=== PATIENT | female | born 1990 | race Caucasian/White ===

== ENCOUNTER 2022-02-13 09:36 | Emergency (ER) | payer MEDICAID, SELFPAY ==
--- NOTE | 2022-02-13 09:30 | RT.EKG_ITS ---
APPROVED REPORT Exam: Resting ECG Reason for Exam: chest pain Patient Location: E HR:96 bpm ECG Measurements Heart Rate 96 AXIS MI 136 P 42 QRSd 68 QRS 15 QT 340 T 36 QTc 429 Conclusion Sinus rhythm...normal P axis, V-rate 60- 99 Atrial premature complex...SV complex w/ short R-R interval Probable left atrial enlargement...P >50mS, <-0.10mV V1 sinus rhythm, normal axis, normal intervals, non ischemic
[2022-02-13 09:41] VITALS: BP 118/81; PULSE 95; RESP 18; TEMP 36.9; O2SAT 96
--- NOTE | 2022-02-13 10:00 | DI.RAD_ITS ---
Exam(s) XR PORTABLE CHEST AP EXAM: XR PORTABLE CHEST AP CLINICAL HISTORY: chest pain. TECHNIQUE: 2D digital imaging was performed. COMPARISON: No exams were available for comparison FINDINGS: Single AP portable view. Heart size is upper normal. The mediastinum is not widened. Lungs are clear. No infiltrates nor obvious pleural effusions. IMPRESSION: No acute pulmonary findings on this single AP portable view of the chest. DATA REPOSITORY: RADIATION DOSE DELIVERED: All CT scans at this facility use at least one of these dose optimization techniques: automated exposure control; mA and/or kV adjustment per patient size (includes targeted e xams where dose is matched to clinical indication); or iterative reconstruction.
[2022-02-13 10:01] VITALS: RESP 18
--- NOTE | 2022-02-13 10:05 | ED.GENADUL_ITS ---
Discharge Plan Disposition Patient Disposition: HOME Condition: Stable Discharge Details Clinical Impression: Body aches, Elevated transaminase level Primary Care Provider: Chris Marcos ED Provider: Elijah Dumont Home Meds and New Rx's Prescriptions: New doxycycline hyclate 100 mg tablet 100 mg PO BID 10 Days Qty: 20 0RF No Action dextroamphetamine-amphetamine 30 mg tablet 30 mg PO DAILY jmrjanur-pfettljfh-EB 3.5-10,000-1 mg/mL-unit/mL-% drops,suspension 4 drp otic (ear) TID Qty: 10 1RF Rx Instructions: treat both ears. stay on side 5 minutes after putting drops in upward facing ear Advair HFA 115-21 mcg/actuation HFA aerosol inhaler 2 puff inhalation BID celecoxib [Celebrex] 100 mg capsule 100 mg PO BID cyclobenzaprine 10 mg tablet 10 mg PO HS PRN dextroamphetamine-amphetamine 30 mg capsule,extended release 24hr 30 mg PO QPM diclofenac sodium [Arthritis Pain (diclofenac)] 1 % gel 2 g topical QID Rx Instructions: apply to single knee, ankle, foot; for foot includes sole/toes/top of foot escitalopram oxalate 10 mg tablet 10 mg PO DAILY meclizine 25 mg tablet 25 mg PO TID PRN meloxicam 15 mg tablet 15 mg PO DAILY PRN desog-e.estradiol/e.estradiol [Mircette (28)] 0.15-0.02 mgx21 /0.01 mg x 5 tablet 1 tab PO DAILY pantoprazole 40 mg tablet,delayed release (DR/EC) 40 mg PO DAILY olopatadine 0.7 % drops 1 drp ophthalmic (eye) DAILY albuterol sulfate [ProAir HFA] 90 mcg/actuation HFA aerosol inhaler 1 puff inhalation Q4H PRN Discharge Instructions Instructions: Fatigue (ED) Additional Instructions: We are treating you with doxycycline in case you have contracted a tickborne illness such as anaplasmosis or ehrlichiosis or Lyme disease. We are waiting on blood test that will tell us you have these infections, which should come back within the next couple of days. Please take antibiotics as prescribed. Please return to the emergency department for any worsening symptoms. Please keep your appointment with your primary care doctor on Tuesday as scheduled. Medical Decision Making 31-year-old female presents with generalized body aches fatigue intermittent chest pain joint pain and intermittent nausea over the past week progressive in nature, has been camping in [place] recently. Was evaluated at [facility] emergency department with a negative work-up per patient. Hemodynamically stable afebrile nontoxic. Does appear tired and slightly uncomfortable. EKG sinus rhythm normal axis nonischemic, no respiratory distress, no evidence of joint inflammation on examination, full range of motion of all extremities including hands knees ankles and feet, no rashes appreciated. Consider dehydration versus electrolyte abnormality versus tickborne illness versus viral syndrome versus myositis 11: 30 given constellation of symptoms and mild transaminitis we will treat empirically for tickborne illness such as anaplasmosis and or ehrlichiosis; must also consider component of dehydration given ketonuria slightly dry oral mucosa and body cramps. Mildly elevated CPK, patient does have a physical job and was outside in [place]. Home care instructions and return precautions given HPI General Date/Time Provider Initiated Documentation: 02/13/22 09:37 . HPI Narrative: 31-year-old female history of irregular heartbeat, presents with body aches mainly involving her hands and her knees as well as itching and tightness of her hands generalized fatigue and intermittent nausea over the past week, has been traveling in [place] living in a camper, was evaluated at [facility] emergency department had a work-up which included a CT angio of the chest that was negative. Endorses intermittent anterior chest discomfort. No cough or shortness of breath. Related Data Home Medications Medication Instructions Recorded Confirmed albuterol sulfate 90 mcg/actuation 1 puff inhalation Q4H PRN 06/30/21 07/08/21 aerosol inhaler (ProAir HFA) celecoxib 100 mg capsule (Celebrex) 100 mg PO BID 06/30/21 07/08/21 cyclobenzaprine 10 mg tablet 10 mg PO HS PRN 06/30/21 07/08/21 desogestrel-e.estradiol 0.15 1 tab PO DAILY 06/30/21 07/08/21 mg-0.02 mg(21)/e.estrad 0.01 mg(5) tablet (Mircette (28)) dextroamphetamine-amphetamine ER 30 mg PO QPM 06/30/21 07/08/21 30 mg 24hr capsule,extend release diclofenac sodium 1 % topical gel 2 g topical QID 06/30/21 07/08/21 (Arthritis Pain (diclofenac)) escitalopram oxalate 10 mg tablet 10 mg PO DAILY 06/30/21 07/08/21 fluticasone propionate 115 2 puff inhalation BID 06/30/21 07/08/21 mcg-salmeterol 21 mcg/actuation HFA inhaler (Advair HFA) meclizine 25 mg tablet 25 mg PO TID PRN 06/30/21 07/08/21 meloxicam 15 mg tablet 15 mg PO DAILY PRN 06/30/21 07/08/21 olopatadine 0.7 % eye drops 1 drp ophthalmic (eye) DAILY 06/30/21 07/08/21 pantoprazole 40 mg tablet,delayed 40 mg PO DAILY 06/30/21 07/08/21 release dextroamphetamine-amphetamine 30 30 mg PO DAILY 07/08/21 07/08/21 mg tablet pphqbjuz-xjtwhrcvx-icywkyhdy 3.5 4 drp otic (ear) TID #10 mL 07/08/21 07/08/21 mg-10,000 unit/mL-1 % ear drops,susp doxycycline hyclate 100 mg tablet 100 mg PO BID 10 days #20 tabs 02/13/22 Previous Rx's Medication Instructions Recorded sbsbkfsm-kvcifqzuo-hqzivfvoq 3.5 4 drp otic (ear) TID #10 mL 07/08/21 mg-10,000 unit/mL-1 % ear drops,susp doxycycline hyclate 100 mg tablet 100 mg PO BID 10 days #20 tabs 02/13/22 Allergies Allergy/AdvReac Type Severity Reaction Status Date / Time No Known Allergies Allergy Verified 07/08/21 11:29 General Stated Complaint: GenMedical CLAIR: 3 Review of Systems Narrative: Review of Systems Constitutional: Body, fatigue Eyes: negative ENT: negative Cardiovascular: Chest pain Respiratory: negative Gastrointestinal: negative : negative Musculoskeletal: Joint pain Skin: negative Neurologic: negative Psych: negative PFSH All Active Problems (Updated 02/13/22 @ 11:34 by lEijah Dumont MD) Body aches (Acute) Elevated transaminase level (Acute) Referred otalgia of left ear (Acute) Otitis externa, left (Acute) Otitis externa of right ear (Acute) Irregular heart beat (Acute) Pruritus (Acute) Discharge of ear (Acute) Hearing loss (Acute) Medical History ADHD Cholelithiasis without obstruction Chronic rhinitis Cyst of right ovary Depressive disorder Gastroesophageal reflux disease Long-term current use of drug therapy for attention deficit hyperactivity disorder (ADHD) Overweight Pain in finger of right hand Severe obesity Shoulder joint pain Surgical History History of ankle surgery Right ankle surgery 04/21/2021 History of cholecystectomy 07/07/2018 History of dilation and curettage 03/24/2011 History of laparoscopy History of meniscectomy of left knee 2009 History of meniscectomy of right knee 2005 History of open reduction and internal fixation (ORIF) procedure right ankle 01/21/2021 History of tubal ligation 02/18/2018 Hx of bilateral salpingectomy Family History Mother Asthma Endometriosis Hypertension Hypercholesterolemia Sister Bipolar disorder Diabetes Maternal Grandmother Diabetes Maternal Grandfather Colon cancer Maternal Aunt Malignant carcinoid tumor of lung Social History Smoking/Tobacco Use Status: Never Smoking risk assessment performed?: Yes Alcohol Intake: never Drug use: Never Substance use type: does not use Household members: significant other and children Number of Children: 2 current occupation: Caregiver What is your relationship status?: living with partner Panel score (0-1 are the most socially isolated patients): 1 Do you feel safe at home: Yes Do you feel safe in your relationship?: Yes Exam Narrative Exam Narrative: Physical Examination General: alert, awake, cooperative, Fatigued and mildly uncomfortable HEENT: normocephalic, atraumatic; PERRL, EOM intact, conjunctiva normal; no nasal discharge; moist mucous membranes, oral and pharyngeal mucosa normal, tolerating secretions Neck: supple, trachea midline; full ROM Chest: normal to inspection Respiratory: normal respiratory effort, speaking in full sentences, clear to auscultation, no wheezing, rales or rhonchi Cardiac: regular rate, regular rhythm, S1S2 intact, no murmurs rubs or gallops GI: abdomen soft, non-tender, non-distended; no palpable mass or hepatosplenomegaly Skin: no lesions, rashes or trauma appreciated Neuro: AAOx3, normal speech, moving all extremities 5 out of 5 strength upper and lower extremities cranial nerves intact; Extremities: No evidence of joint inflammation involving hands wrist or knees or ankles, no effusions, no induration edema or erythema no rash to palms Psych: Appropriate mood and affect Course Vital Signs Vital signs: Vital Signs Temperature 36.9 C 02/13/22 09:41 Pulse 95 H 02/13/22 09:41 Respiratory Rate 18 02/13/22 09:41 Blood Pressure 118/81 02/13/22 09:41 Pulse Oximetry 96 02/13/22 09:41 Temperature 36.9 C 02/13/22 09:41 Temperature Source Temporal Artery Scan 02/13/22 09:41 Pulse 95 H 02/13/22 09:41 Respiratory Rate 18 02/13/22 10:01 Respiratory Effort Non-Labored 02/13/22 10:01 Respiratory Depth Normal 02/13/22 10:01 Respiratory Pattern Normal 02/13/22 10:01 Blood Pressure 118/81 02/13/22 09:41 Blood Pressure Position Sitting 02/13/22 09:41 Pulse Oximetry 96 02/13/22 09:41 Oxygen Delivery Method Room Air 02/13/22 09:41 Oxygen Flow Rate 0 02/13/22 09:41 Pain Level 7 02/13/22 09:41
[2022-02-13] MEDS: Normal Saline 1,000 ML 1000 ML IV (10:16)
[2022-02-13 10:17] LABS: Abs Immature Grans 0.02 10^3/uL (0.0-0.06); Absolute Basophil Count 0.02 10^3/uL (0.0-0.2); Absolute Eosinophil Count 0.28 10^3/uL (0.0-0.7); Absolute Monocyte Count 0.37 10^3/uL (0.1-0.8); Absolute Neutrophil Count 7.29 10^3/uL (1.2-6.7); Basophils % 0.2; Eosinophils % 3.2; HCT 40.8 % (36.0-46.0); HGB 13.7 g/dL (11.2-15.7); Immature Grans % 0.2; Lymphocytes % 10.1; MCH 27.5 pg (27.0-33.0); MCHC 33.6 % (32.0-36.0); MCV 82 fL (80-95); MPV 10.1 fL (8.0-11.0); Monocytes % 4.2; Neutrophils % 82.1; Platelet Count 263 10^3/uL (130-400); RBC 4.98 10^6/uL (3.93-5.22); RDW 13.2 % (11.7-14.6); RDW-SD 38.9 fL; WBC 8.88 10^3/uL (4.4-10.8)
[2022-02-13] MEDS: Ketorolac 30 MG/ML VIAL IVP (10:17)
[2022-02-13] MEDS: Ondansetron 4 MG/2 ML VIAL IVP (10:17)
[2022-02-13] MEDS: Dexamethasone 10 MG/ML VIAL IVP (10:17)
--- NOTE | 2022-02-13 10:27 | DI.VRAD_ITS ---
PROCEDURE INFORMATION: Exam: XR Chest Exam date and time: 02/13/2022 9:56 AM Age: 31 years old Clinical indication: Pain; Chest pressure TECHNIQUE: Imaging protocol: Radiologic exam of the chest. Views: 1 view. COMPARISON: No relevant prior studies available. FINDINGS: Lungs: No airspace infiltrate. Pleural spaces: No evidence of pleural effusion or pneumothorax. Heart/Mediastinum: Unremarkable. No cardiomegaly. Bones/joints: No significant osseous abnormality. IMPRESSION: No acute findings. Dictated and Authenticated by: Marquis Guan MD. Ordering:JUMANA Nava MD
[2022-02-13 10:32] LABS: PTT Activated 24.8 sec (21.0-27.5); Prothrombin Time 10.2 sec (9.3-11.0)
[2022-02-13 10:43] LABS: ALT 161 U/L (14-59); AST 73 U/L (15-37); Albumin 3.3 g/dL (3.4-5.0); Alkaline Phosphatase 151 U/L (46-116); Anion Gap 8.9 mmol/L (3-11); BUN 9 mg/dL (7-18); Bilirubin, Total 0.8 mg/dL (0.2-1.0); CO2 26.1 mmol/L (21.0-32.0); CREATININE 0.9 mg/dL (0.55-1.02); Chloride 102 mmol/L (98-107); Creatine Kinase 263 U/L (26-192); Glucose 125 mg/dL (74-106); Magnesium 1.8 mg/dL (1.8-2.4); PHOSPHORUS 3.2 mg/dL (2.6-4.7); Potassium 3.7 mmol/L (3.5-5.1); Sodium 137 mmol/L (136-145); TSH (W/Ref FT4) 0.98 uIU/mL (0.36-3.74); Total Protein 7.7 g/dL (6.4-8.2); Troponin I < 50 ng/L (<or=60)
[2022-02-13] MEDS: DOXYCYCLINE 100 MG in Normal Saline 100 ML IVPB (11:11)
[2022-02-13 11:25] LABS: Bilirubin Small (Negative); Blood Moderate (Negative); Clarity Clear (Clear); Glucose Negative (Negative); Ketones 15 mg/dL (Negative); Leukocyte Esterase Negative (Negative); Nitrite Negative (Negative); Specific Gravity >= 1.030 (1.005-1.025)
[2022-02-13 11:34] LABS: Bacteria Few HPF (Negative); C & S Indicated? No/Sq. Contamination; Casts 0-2 Hyaline LPF (Negative); Crystals Negative HPF (Negative); Epithelial Cells Moderate HPF (Negative); Mucus Trace (Negative); WBC Negative HPF (0-5)
[2022-02-13 11:46] VITALS: BP 122/76; PULSE 90; RESP 16; TEMP 36.4; O2SAT 97
[2022-02-15 10:17] LABS: Lyme Ab w Rflx to Lyme Confirm Negative (Negative)
--- NOTE | 2022-02-15 13:41 | NUR.NOTE ---
Nursing Note: At the patient request the ED visit data was faxed to Dr. Marcos office.
[2022-02-17 17:09] LABS: Anaplasma phagocytophilum Negative (Negative); B. miyamotoi PCR Negative (Negative); Babesia divergens/MO-1 Negative (Negative); Babesia duncani Negative (Negative); Babesia microti Negative (Negative); Ehrlichia chaffeensis Negative (Negative); Ehrlichia ewingii/canis Negative (Negative); Ehrlichia muris eauclairensis Negative (Negative)
--- NOTE | 2022-02-18 10:22 | NUR.NOTE ---
Patient called for Lyme disease results. Notified of Negative results.
== END 2022-02-13 12:03 | disposition home or self-care (01) ==
PROVIDERS: Emergency Provider Emergency Medicine; PCP Family Medicine
DX: M79.642 Pain in left hand (principal); M79.641 Pain in right hand; M25.562 Pain in left knee; M25.561 Pain in right knee; F90.9 Attention-deficit hyperactivity disorder, unspecified type; R74.01 Elevation of levels of liver transaminase levels; R07.89 Other chest pain; R53.83 Other fatigue; R11.0 Nausea
CPT/HCPCS: 36415; 80053; 81025; 82550; 87798; 93005; 96361; 96365; 96375; 99284; 71045; 81003; 81015; 83735; 84100; 84443; 84484; 85025; 85610; 85730; 86618; 93010; 99285; J1100; J1885; J2405